=== PATIENT | female | born 1990 | race Caucasian/White ===

== ENCOUNTER 2016-08-19 00:53 | Inpatient (IN) | payer OTHER ==
[2016-08-19] VITALS (23 sets, daily range): BP systolic 78–119; BP diastolic 39–63
[~2016-08-19] VITALS: Ht 162.6 cm; Wt 80.7 kg
[2016-08-19] MEDS ORDERED: IPRATRPIUM/ALBUTEROL 0.5/2.5MG 3 ML NEBU. ONE (01:14)
[2016-08-19] MEDS ORDERED: POTASSIUM CHLORIDE 10MEQ 100 ML IV PRN ×3 (01:30)
[2016-08-19] MEDS ORDERED: INSULIN REGULAR VIAL 150 UNIT in 0.9 % SODIUM CHLORIDE 150ML 150 ML IV PRN (01:30)
[2016-08-19] MEDS ORDERED: ALBUTEROL SULFATE 2.5 MG/3 ML NEBU. NEB PRN (01:45)
[2016-08-19] MEDS: ONDANSETRON PF 4 MG/2 ML VIAL. IV PRN ×4 (02:06→23:11)
[2016-08-19] MEDS: MORPHINE SULFATE 2 MG/ML DISP.SYRIN. IV PRN ×4 (02:07→16:32)
[2016-08-19] MEDS ORDERED: MORPHINE SULFATE 4 MG/ML DISP.SYRIN. IV PRN (02:30)
[2016-08-19] MEDS ORDERED: INSU100V13 SQ (02:35)
[2016-08-19] MEDS ORDERED: LEVO125T PO (02:35)
[2016-08-19] MEDS ORDERED: PROAIR HFA8.5 GM INH (02:35)
[2016-08-19] MEDS ORDERED: FLUT1DIS3 IH (02:35)
[2016-08-19] MEDS ORDERED: PANT20TA2 PO (02:35)
[2016-08-19] MEDS ORDERED: INSU100V10 IJ (02:35)
[2016-08-19 02:40] LABS: CALCIUM 8.6 mg/dL (8.5-10.1); CREATININE 1.3 mg/dL (0.6-1.0); GFR 49.9; PHOSPHORUS 4.7 mg/dL (2.6-4.7); POTASSIUM 5.1 mmol/L (3.5-5.1)
[2016-08-19] MEDS ORDERED: IV NORMAL SALINE 1000ML BAG 1,000 ML IV SCH (03:00)
[2016-08-19] MEDS: IV DEXTROSE 5% - 0.9 % NACL 1,000 ML IV SCH ×5 (05:00→22:00)
[2016-08-19 06:46] LABS: CALCIUM 7.7 mg/dL (8.5-10.1); CREATININE 1.1 mg/dL (0.6-1.0); GFR 60.5; MAGNESIUM 1.5 mg/dL (1.8-2.4); PHOSPHORUS 3.4 mg/dL (2.6-4.7); POTASSIUM 4.6 mmol/L (3.5-5.1)
[2016-08-19] MEDS ORDERED: MAGNESIUM SULFATE 4GM 100 ML IV ONE (08:00)
[2016-08-19] MEDS ORDERED: ACETAMINOPHEN 500 MG TABLET PO PRN (08:15)
[2016-08-19] MEDS ORDERED: NON FORMULARY ITEM (Albuterol Sulfate (Proair Hfa Inhaler) 1 PUFF) INH PRN (08:15)
[2016-08-19] MEDS: ALBUTEROL SULFATE 2.5 MG/3 ML NEBU. NEB SCH ×4 (08:30→19:17)
[2016-08-19] MEDS ORDERED: MAGNESIUM SULFATE 2GM 50 ML IV ONE (08:30)
[2016-08-19 08:32] LABS: HCO3 ABG 8 mmol/L (21-28); PCO2 ABG 22 mmHg (35-46); PO2 ABG 95 mmHg (85-108); SAT O2 ABG 97 % (92-99)
[2016-08-19 08:40] LABS: FIO2 ABG 21; PH ABG 7.18 (7.35-7.45)
[2016-08-19] MEDS ORDERED: NON FORMULARY ITEM (Fluticasone/Salmeterol (Advair 250-50 Diskus) 1 PUFF) IH SCH (09:00)
--- NOTE | 2016-08-19 09:00 | PDOC1 ---
History and Physical Date of Admission Date of Admission DATE: 08/19/16 TIME: 08:53 Identification/Chief Complaint Chief Complaint nausea Source Source: Chart review, Patient History of Present Illness History of Present Illness 25 y.o Female, poor historian, no family at bedside, admitted for DKA. NO lactate, no UA, no CBC avail to me, only BMP which shows gap 20 plus, BIcarb 8,. , crea 1.4. Pain seeker as per staff, on home meds on levemir 32 qhs. Unsure if there is non compliance as cause for admission, Pt lethargic,. Unsure also if DKA vs HONK as metformin is listed as allergy I did ordfer STAT ABG and CBC, lactate and UA to check for ketones and infection ,. pH 7.1, bicarb still 8,. Insulin gtt running, BS now 200s, dextrose IVF running at 250cc/hr Past Medical History Pulmonary: Asthma, Bronchitis Endocrine: Diabetes, Hypothyroidism Past Surgical History Past Surgical History: No pertinent history Family History Family History: No Significant, Family History Unknown Social History Smoke: No ALCOHOL: none Drugs: None Current Medications Current Medications Current Medications Albuterol/ Ipratropium 3 ml 3 ml STK-MED ONCE .ROUTE ; Start 08/19/16 at 01:14; Stop 08/19/16 at 01:15; Status DC Sodium Chloride 1,000 ml @ 250 mls/hr Q4H IV Last administered on 08/19/16 02: 13; Start 08/19/16 at 03:00; Stop 08/19/16 at 05:13; Status DC Insulin Human Regular 150 unit/ Sodium Chloride 151.5 ml @ 0 mls/hr CONT PRN PRN IV PER PROTOCOL Last administered on 08/19/16 02:13; Start 08/19/16 at 01:30 Potassium Chloride 100 ml @ 100 mls/hr PRN Q1HR PRN IV SEE COMMENTS; Start 08/19/16 at 01:30 Potassium Chloride 100 ml @ 100 mls/hr PRN Q1HR PRN IV SEE COMMENTS; Start 08/19/16 at 01:30 Potassium Chloride (KCl Premix 10meq) 100 ml @ 100 mls/hr PRN Q1HR PRN IV SEE COMMENTS; Start 08/19/16 at 01:30 Albuterol Sulfate (Ventolin Neb Soln) 2.5 mg PRN QID PRN NEB WHEEZING; Start at 01:45 Morphine Sulfate 2 mg PRN Q2HR PRN IV SEVERE PAIN Last administered on 08:01; Start 08/19/16 at 01:45 Ondansetron HCl (Zofran) 4 mg PRN Q6HRS PRN IV NAUSEA/VOMITING Last administered on 08/19/16 08:01; Start 08/19/16 at 01:45; Stop 08/19/16 at 08:22; Status DC Morphine Sulfate 4 mg 4 mg PRN Q2HR PRN IV SEVERE PAIN Last administered on 08/19 03:13; Start 08/19/16 at 02:30 Dextrose/Sodium Chloride 1,000 ml @ 250 mls/hr Q4H IV Last administered on 08/19 05:00; Start 08/19/16 at 05:15 Magnesium Sulfate/ Dextrose 100 ml @ 25 mls/hr 1X ONCE IV Last administered on 08/19/16 08:23; Start 08/19/16 at 08:00; Stop 08/19/16 at 11:59 Magnesium Sulfate/ Dextrose (Magnesium Sulfate PREMIX 2GM) 50 ml @ 25 mls/hr 1X ONCE IV ; Start 08/19/16 at 08:30; Stop 08/19/16 at 10:29; Status Cancel Ondansetron HCl (Zofran) 4 mg PRN Q6HRS PRN IV NAUSEA/VOMITING; Start 08/19/16 at 08:15 Acetaminophen (Tylenol) 500 mg PRN Q6HRS PRN PO MILD PAIN / TEMP; Start at 08:15 Levothyroxine Sodium (Synthroid) 125 mcg DAILY PO ; Start 08/19/16 at 09:00 Non-Formulary Medication 1 puff PRN Q6HRS PRN INH SHORTNESS OF BREATH; Start at 08:15; Status UNV Non-Formulary Medication 1 puff BID IH ; Start 08/19/16 at 09:00; Status UNV Pantoprazole Sodium (Protonix) 40 mg DAILYAC PO ; Start 08/20/16 at 07:30 Albuterol Sulfate (Ventolin Neb Soln) 2.5 mg RTQID NEB ; Start 08/19/16 at 08:30 Budesonide (Pulmicort) 0.5 mg RTBID NEB ; Start 08/19/16 at 20:00 Active Scripts Active Reported Proair Hfa Inhaler (Albuterol Sulfate) 8.5 Gm Hfa.aer.ad 1 Puff INH PRN Q6HRS PRN Protonix (Pantoprazole Sodium) 20 Mg Tablet.dr 1 Tab PO DAILY Advair 250-50 Diskus (Fluticasone/Salmeterol) 1 Each Disk.w.dev 1 Puff IH BID Synthroid (Levothyroxine Sodium) 125 Mcg Tablet 1 Tab PO DAILY Novolin R (Insulin Regular, Human) 100 Unit/1 Ml Vial 100 Unit IJ Levemir (Insulin Detemir) 100 Unit/1 Ml Vial 32 Unit SQ QHS Allergies Allergies: Coded Allergies: Penicillins (Verified Allergy, Intermediate, 08/19/16) metformin (Verified Allergy, Intermediate, 08/19/16) vancomycin (Verified Allergy, Intermediate, 08/19/16) ROS Review of System limited -lethargic Physical Exam General: No acute distress, Other (lethargic) HEENT: Atraumatic Lungs: Clear to auscultation Heart: S1S2, RRR, other (sinus tachy) Breasts: Normal, Rt breast nml w/o mass, Lt breast nml w/o mass, Nipples normal Abdomen: Normal bowel sounds, Soft, No tenderness, No hepatosplenomegaly, No masses Rectal Exam: not examined, mass PELVIC: Nml ext genitalia Extremities: No clubbing, No cyanosis, No edema, Normal pulses, No tenderness/ swelling Skin: No rashes, No breakdown, No significant lesion Vitals Vitals Vital Signs Date Time Temp Pulse Resp B/P Pulse Ox O2 Delivery O2 Flow Rate FiO2 08/19/16 08:01 20 100 Room Air 08/19/16 06:00 106 100/39 08/19/16 05:00 98.5 98.5 Labs Labs Laboratory Tests Test 08/19/16 01:16 08/19/16 02:05 08/19/16 04:44 08/19/16 06:06 Glucose (Fingerstick) 267mg/dL (70-99) 99mg/dL (70-99) 126mg/dL (70-99) Sodium Level 137mmol/L (136-145) Potassium Level 5.1mmol/L (3.5-5.1) Chloride Level 99mmol/L (98-107) Carbon Dioxide Level 8mmol/L (21-32) Anion Gap 30 (6-14) Blood Urea Nitrogen 33mg/dL (7-20) Creatinine 1.3mg/dL (0.6-1.0) Estimated GFR (Cockcroft-Gault) 49.9 Glucose Level 243mg/dL (70-99) Calcium Level 8.6mg/dL (8.5-10.1) Phosphorus Level 4.7mg/dL (2.6-4.7) Magnesium Level 2.0mg/dL (1.8-2.4) Test 08/19/16 06:20 08/19/16 07:17 08/19/16 08:28 08/19/16 08:30 Sodium Level 135mmol/L (136-145) Potassium Level 4.6mmol/L (3.5-5.1) Chloride Level 101mmol/L (98-107) Carbon Dioxide Level 9mmol/L (21-32) Anion Gap 25 (6-14) Blood Urea Nitrogen 24mg/dL (7-20) Creatinine 1.1mg/dL (0.6-1.0) Estimated GFR (Cockcroft-Gault) 60.5 Glucose Level 136mg/dL (70-99) Calcium Level 7.7mg/dL (8.5-10.1) Phosphorus Level 3.4mg/dL (2.6-4.7) Magnesium Level 1.5mg/dL (1.8-2.4) Glucose (Fingerstick) 205mg/dL (70-99) 238mg/dL (70-99) O2 Saturation 97% (92-99) Arterial Blood pH 7.18 (7.35-7.45) Arterial Blood pCO2 at Patient Temp 22mmHg (35-46) Arterial Blood pO2 at Patient Temp 95mmHg (85-108) Arterial Blood HCO3 8mmol/L (21-28) Arterial Blood Base Excess -18mmol/L (-3-3) FiO2 21 Laboratory Tests Test 08/19/16 01:16 08/19/16 02:05 08/19/16 04:44 08/19/16 06:06 Glucose (Fingerstick) 267mg/dL (70-99) 99mg/dL (70-99) 126mg/dL (70-99) Sodium Level 137mmol/L (136-145) Potassium Level 5.1mmol/L (3.5-5.1) Chloride Level 99mmol/L (98-107) Carbon Dioxide Level 8mmol/L (21-32) Anion Gap 30 (6-14) Blood Urea Nitrogen 33mg/dL (7-20) Creatinine 1.3mg/dL (0.6-1.0) Estimated GFR (Cockcroft-Gault) 49.9 Glucose Level 243mg/dL (70-99) Calcium Level 8.6mg/dL (8.5-10.1) Phosphorus Level 4.7mg/dL (2.6-4.7) Magnesium Level 2.0mg/dL (1.8-2.4) Test 08/19/16 06:20 08/19/16 07:17 08/19/16 08:28 08/19/16 08:30 Sodium Level 135mmol/L (136-145) Potassium Level 4.6mmol/L (3.5-5.1) Chloride Level 101mmol/L (98-107) Carbon Dioxide Level 9mmol/L (21-32) Anion Gap 25 (6-14) Blood Urea Nitrogen 24mg/dL (7-20) Creatinine 1.1mg/dL (0.6-1.0) Estimated GFR (Cockcroft-Gault) 60.5 Glucose Level 136mg/dL (70-99) Calcium Level 7.7mg/dL (8.5-10.1) Phosphorus Level 3.4mg/dL (2.6-4.7) Magnesium Level 1.5mg/dL (1.8-2.4) Glucose (Fingerstick) 205mg/dL (70-99) 238mg/dL (70-99) O2 Saturation 97% (92-99) Arterial Blood pH 7.18 (7.35-7.45) Arterial Blood pCO2 at Patient Temp 22mmHg (35-46) Arterial Blood pO2 at Patient Temp 95mmHg (85-108) Arterial Blood HCO3 8mmol/L (21-28) Arterial Blood Base Excess -18mmol/L (-3-3) FiO2 21 VTE Prophylaxis Ordered VTE Prophylaxis Devices: Yes VTE Pharmacological Prophylaxi: Yes Assessment/Plan Assessment/Plan 1. DKA 2. Pseudohyponatremia 3. Gap metabolic acidosis 4. DM uncontrolled 5. Hypothyroidism on synthroid 6. Asthma vs COPD on inhalers 7. SIRS, no sepsis 8. MEtabolc encephalopathy sec to # 1 PLAn: DKA protocol, cont insulin gtt as gap still open Agree with dextrose containing IVF now 2 amps bicarb now given significant acidemia and no improvement with insulin gtt and IVF COnt synthroid and inhalers Dc morphine 4 mgs - Downgrade to liquid diet BMP q4 till gap closes Keep ICU CC 32mins JELENA BASSETT MD Aug 19, 2016 09:00
[2016-08-19] MEDS ORDERED: SODIUM BICARBONATE VIAL 50 MEQ in IV 1/2 NORMAL SALINE 1,000 ML IV ONE (09:30)
[2016-08-19 09:45] LABS: BASO % 0 % (0-3); EOS % 0 % (0-3); HEMOGLOBIN 12.2 g/dL (12.0-15.5); LYMPH # 2.2 x10^3/uL (1.0-4.8); LYMPH % 19 % (24-48); MEAN CORPUSCULAR HEMOGLOBIN 30 pg (25-35); MEAN CORPUSCULAR HGB CONC 32 g/dL (31-37); MEAN CORPUSCULAR VOLUME 93 fL (79-100); MONO % 7 % (0-9); NEUT % 74 % (31-73); PLATELET COUNT 289 x10^3/uL (140-400); RED BLOOD COUNT 4.08 x10^6/uL (3.50-5.40); RED CELL DISTRIBUTION WIDTH 16.1 % (11.5-14.5); WHITE BLOOD COUNT 11.4 x10^3/uL (4.0-11.0)
[2016-08-19] MEDS ORDERED: SODIUM BICARB ADULT 8.4% 50 MEQ/50 ML DISP.SYRIN. IV ONE (10:00)
[2016-08-19 10:03] LABS: CALCIUM 7.7 mg/dL (8.5-10.1); CREATININE 1.1 mg/dL (0.6-1.0); GFR 60.5; PHOSPHORUS 2.5 mg/dL (2.6-4.7); POTASSIUM 4.2 mmol/L (3.5-5.1)
[2016-08-19] MEDS: LEVOTHYROXINE 125 MCG TABLET PO SCH (11:55)
[2016-08-19] MEDS: POTASSIUM CHLORIDE 10MEQ 100 ML IV SCH ×6 (11:55→23:28)
[2016-08-19] MEDS ORDERED: SODIUM PHOSPHATE 20 MMOL in IV DEXTROSE 5% 250 ML IV ONE ×2 (12:30→17:30)
[2016-08-19 15:52] LABS: CALCIUM 7.3 mg/dL (8.5-10.1); GFR 67.6; PHOSPHORUS 2.6 mg/dL (2.6-4.7); POTASSIUM 3.7 mmol/L (3.5-5.1)
[2016-08-19] MEDS: BUDESONIDE 0.5 MG/2 ML NEBU. NEB SCH (19:17)
[2016-08-19 20:02] LABS: CALCIUM 6.7 mg/dL (8.5-10.1); CREATININE 0.9 mg/dL (0.6-1.0); GFR 76.3; PHOSPHORUS 2.2 mg/dL (2.6-4.7); POTASSIUM 3.4 mmol/L (3.5-5.1)
[2016-08-19] MEDS ORDERED: DEXTROSE 50% 25 GM / 50ML DISP.SYRIN. IV PRN (22:30)
[2016-08-19] MEDS ORDERED: INSULIN DETEMIR 300 UNITS/3 ML INSULN.PEN. SQ ONE (23:30)
[2016-08-19] MEDS: IV NORMAL SALINE 1000ML BAG 1,000 ML IV SCH (23:30)
[2016-08-20] VITALS (10 sets, daily range): BP systolic 89–116; BP diastolic 50–75
[2016-08-20 05:07] LABS: BILIRUBIN,URINE SMALL (NEG); GLUCOSE,URINE 250 mg/dL (NEG); NITRITE,URINE NEGATIVE (NEG); PROTEIN,URINE NEGATIVE (NEG-TRACE); UROBILINOGEN,URINE 0.2 mg/dL (0.2 mg/dL)
[2016-08-20 05:16] LABS: BACTERIA,URINE 0 /HPF (0-FEW); RBC,URINE 0 /HPF (0-2); SQUAMOUS EPITHELIAL CELL,UR FEW /LPF; WBC,URINE 0 /HPF (0-4)
[2016-08-20 06:03] LABS: CREATININE 0.8 mg/dL (0.6-1.0); GFR 87.4; MAGNESIUM 2.1 mg/dL (1.8-2.4); PHOSPHORUS 1.1 mg/dL (2.6-4.7); POTASSIUM 3.4 mmol/L (3.5-5.1)
[2016-08-20] MEDS: BUDESONIDE 0.5 MG/2 ML NEBU. NEB SCH ×2 (07:44→20:52)
[2016-08-20] MEDS: ALBUTEROL SULFATE 2.5 MG/3 ML NEBU. NEB SCH ×4 (07:44→20:52)
[2016-08-20] MEDS: INSULIN ASPART 300 UNITS/3 ML INSULN.PEN SQ SCH ×3 (08:00→18:18)
[2016-08-20] MEDS: OXYCODONE/APAP 5/325 TABLET. PO PRN ×3 (09:03→20:54)
[2016-08-20] MEDS: PANTOPRAZOLE 40 MG TABLET.DR. PO SCH (09:03)
[2016-08-20] MEDS: LEVOTHYROXINE 125 MCG TABLET PO SCH (09:03)
[2016-08-20] MEDS: ONDANSETRON PF 4 MG/2 ML VIAL. IV PRN ×3 (09:03→21:00)
--- NOTE | 2016-08-20 12:23 | PDOC ---
PROGRESS NOTES Chief Complaint Chief Complaint 1. DKA, resolved 2. Pseudohyponatremia, resolved 3. Gap metabolic acidosis, closed 4. DM uncontrolled 5. Hypothyroidism on synthroid 6. Asthma vs COPD on inhalers 7. SIRS, no sepsis 8. MEtabolc encephalopathy sec to # 1 History of Present Illness History of Present Illness Just laying in bed Asking for pain meds Claims diarrhea but none seen by staff GAp closed BS on high side - K low Phosphorus low Just ate a biscuit for breakfast PLAN: Transfer to [facility] surg Replace with K phosp Resume HOME DOSE levemir 32 units qhs WIll need scripts of synthroid, long acting insulin vial etc upon dc - hopefully elia, once feeling better Would not inc any more of her narcs Recheck BMP and phosphorus elia AM Eric RN Vitals Vitals Vital Signs Date Time Temp Pulse Resp B/P Pulse Ox O2 Delivery O2 Flow Rate FiO2 08/20/16 11:57 Room Air 08/20/16 11:33 98.0 90 16 102/57 97 98.0 Physical Exam General: No acute distress, Other (lethargic) Abdomen: Normal bowel sounds, Soft, No tenderness, No hepatosplenomegaly, No masses Extremities: No clubbing, No cyanosis, No edema, Normal pulses, No tenderness/ swelling Skin: No rashes, No breakdown, No significant lesion Labs LABS Laboratory Tests Test 08/19/16 12:46 08/19/16 13:39 08/19/16 14:52 08/19/16 15:00 Glucose (Fingerstick) 129mg/dL (70-99) 126mg/dL (70-99) 158mg/dL (70-99) Sodium Level 139mmol/L (136-145) Potassium Level 3.7mmol/L (3.5-5.1) Chloride Level 104mmol/L (98-107) Carbon Dioxide Level 17mmol/L (21-32) Anion Gap 18 (6-14) Blood Urea Nitrogen 13mg/dL (7-20) Creatinine 1.0mg/dL (0.6-1.0) Estimated GFR (Cockcroft-Gault) 67.6 Glucose Level 169mg/dL (70-99) Calcium Level 7.3mg/dL (8.5-10.1) Phosphorus Level 2.6mg/dL (2.6-4.7) Magnesium Level 2.4mg/dL (1.8-2.4) Test 08/19/16 16:26 08/19/16 17:32 08/19/16 18:15 08/19/16 19:24 Glucose (Fingerstick) 143mg/dL (70-99) 130mg/dL (70-99) 133mg/dL (70-99) 148mg/dL (70-99) Test 08/19/16 19:30 08/19/16 21:00 08/19/16 21:29 08/20/16 02:55 Sodium Level 138mmol/L (136-145) Potassium Level 3.4mmol/L (3.5-5.1) Chloride Level 105mmol/L (98-107) Carbon Dioxide Level 21mmol/L (21-32) Anion Gap 12 (6-14) Blood Urea Nitrogen 10mg/dL (7-20) Creatinine 0.9mg/dL (0.6-1.0) Estimated GFR (Cockcroft-Gault) 76.3 Glucose Level 166mg/dL (70-99) Calcium Level 6.7mg/dL (8.5-10.1) Phosphorus Level 2.2mg/dL (2.6-4.7) Magnesium Level 2.0mg/dL (1.8-2.4) Urine Collection Type Unknown Urine Color Yellow Urine Clarity Turbid Urine pH 6.0 Urine Specific [place] 1.020 Urine Protein Negativemg/dL (NEG-TRACE) Urine Glucose (UA) 250mg/dL (NEG) Urine Ketones (Stick) 40mg/dL (NEG) Urine Blood Negative (NEG) Urine Nitrite Negative (NEG) Urine Bilirubin Small (NEG) Urine Urobilinogen Dipstick 0.2mg/dL (0.2 mg/dL) Urine Leukocyte Esterase Negative (NEG) Urine RBC 0/HPF (0-2) Urine WBC 0/HPF (0-4) Urine Squamous Epithelial Cells Few/LPF Urine Amorphous Sediment Present/HPF Urine Bacteria 0/HPF (0-FEW) Urine Mucus Slight/LPF Glucose (Fingerstick) 140mg/dL (70-99) 189mg/dL (70-99) Test 08/20/16 05:20 Sodium Level 142mmol/L (136-145) Potassium Level 3.4mmol/L (3.5-5.1) Chloride Level 109mmol/L (98-107) Carbon Dioxide Level 20mmol/L (21-32) Anion Gap 13 (6-14) Blood Urea Nitrogen 6mg/dL (7-20) Creatinine 0.8mg/dL (0.6-1.0) Estimated GFR (Cockcroft-Gault) 87.4 Glucose Level 121mg/dL (70-99) Calcium Level 7.0mg/dL (8.5-10.1) Phosphorus Level 1.1mg/dL (2.6-4.7) Magnesium Level 2.1mg/dL (1.8-2.4) Review of Systems Review of Systems weak, "pain all over" no appetite Assessment and Plan Assessmemt and Plan Problems Medical Problems: (1) DKA (diabetic ketoacidoses) Status: Acute Problems: Comment Review of Relevant I have reviewed the following items tr (where applicable) has been applied. Labs Laboratory Tests Test 08/19/16 01:16 08/19/16 01:30 08/19/16 02:05 08/19/16 04:44 Glucose (Fingerstick) 267mg/dL (70-99) 99mg/dL (70-99) Nasal Screen MRSA (PCR) Negative (Negative) Sodium Level 137mmol/L (136-145) Potassium Level 5.1mmol/L (3.5-5.1) Chloride Level 99mmol/L (98-107) Carbon Dioxide Level 8mmol/L (21-32) Anion Gap 30 (6-14) Blood Urea Nitrogen 33mg/dL (7-20) Creatinine 1.3mg/dL (0.6-1.0) Estimated GFR (Cockcroft-Gault) 49.9 Glucose Level 243mg/dL (70-99) Calcium Level 8.6mg/dL (8.5-10.1) Phosphorus Level 4.7mg/dL (2.6-4.7) Magnesium Level 2.0mg/dL (1.8-2.4) Test 08/19/16 06:06 08/19/16 06:20 08/19/16 07:17 08/19/16 08:28 Glucose (Fingerstick) 126mg/dL (70-99) 205mg/dL (70-99) 238mg/dL (70-99) Sodium Level 135mmol/L (136-145) Potassium Level 4.6mmol/L (3.5-5.1) Chloride Level 101mmol/L (98-107) Carbon Dioxide Level 9mmol/L (21-32) Anion Gap 25 (6-14) Blood Urea Nitrogen 24mg/dL (7-20) Creatinine 1.1mg/dL (0.6-1.0) Estimated GFR (Cockcroft-Gault) 60.5 Glucose Level 136mg/dL (70-99) Calcium Level 7.7mg/dL (8.5-10.1) Phosphorus Level 3.4mg/dL (2.6-4.7) Magnesium Level 1.5mg/dL (1.8-2.4) Test 08/19/16 08:30 08/19/16 09:32 08/19/16 09:35 08/19/16 10:37 O2 Saturation 97% (92-99) Arterial Blood pH 7.18 (7.35-7.45) Arterial Blood pCO2 at Patient Temp 22mmHg (35-46) Arterial Blood pO2 at Patient Temp 95mmHg (85-108) Arterial Blood HCO3 8mmol/L (21-28) Arterial Blood Base Excess -18mmol/L (-3-3) FiO2 21 Glucose (Fingerstick) 209mg/dL (70-99) 170mg/dL (70-99) White Blood Count 11.4x10^3/uL (4.0-11.0) Red Blood Count 4.08x10^6/uL (3.50-5.40) Hemoglobin 12.2g/dL (12.0-15.5) Hematocrit 38.0% (36.0-47.0) Mean Corpuscular Volume 93fL (79-100) Mean Corpuscular Hemoglobin 30pg (25-35) Mean Corpuscular Hemoglobin Concent 32g/dL (31-37) Red Cell Distribution Width 16.1% (11.5-14.5) Platelet Count 289x10^3/uL (140-400) Neutrophils (%) (Auto) 74% (31-73) Lymphocytes (%) (Auto) 19% (24-48) Monocytes (%) (Auto) 7% (0-9) Eosinophils (%) (Auto) 0% (0-3) Basophils (%) (Auto) 0% (0-3) Neutrophils # (Auto) 8.4x10^3uL (1.8-7.7) Lymphocytes # (Auto) 2.2x10^3/uL (1.0-4.8) Monocytes # (Auto) 0.8x10^3/uL (0.0-1.1) Eosinophils # (Auto) 0.0x10^3/uL (0.0-0.7) Basophils # (Auto) 0.0x10^3/uL (0.0-0.2) Sodium Level 136mmol/L (136-145) Potassium Level 4.2mmol/L (3.5-5.1) Chloride Level 104mmol/L (98-107) Carbon Dioxide Level 12mmol/L (21-32) Anion Gap 20 (6-14) Blood Urea Nitrogen 19mg/dL (7-20) Creatinine 1.1mg/dL (0.6-1.0) Estimated GFR (Cockcroft-Gault) 60.5 Glucose Level 213mg/dL (70-99) Lactic Acid Level 1.2mmol/L (0.4-2.0) Calcium Level 7.7mg/dL (8.5-10.1) Phosphorus Level 2.5mg/dL (2.6-4.7) Magnesium Level 2.0mg/dL (1.8-2.4) Test 08/19/16 11:42 08/19/16 12:46 08/19/16 13:39 08/19/16 14:52 Glucose (Fingerstick) 143mg/dL (70-99) 129mg/dL (70-99) 126mg/dL (70-99) 158mg/dL (70-99) Test 08/19/16 15:00 08/19/16 16:26 08/19/16 17:32 08/19/16 18:15 Sodium Level 139mmol/L (136-145) Potassium Level 3.7mmol/L (3.5-5.1) Chloride Level 104mmol/L (98-107) Carbon Dioxide Level 17mmol/L (21-32) Anion Gap 18 (6-14) Blood Urea Nitrogen 13mg/dL (7-20) Creatinine 1.0mg/dL (0.6-1.0) Estimated GFR (Cockcroft-Gault) 67.6 Glucose Level 169mg/dL (70-99) Calcium Level 7.3mg/dL (8.5-10.1) Phosphorus Level 2.6mg/dL (2.6-4.7) Magnesium Level 2.4mg/dL (1.8-2.4) Glucose (Fingerstick) 143mg/dL (70-99) 130mg/dL (70-99) 133mg/dL (70-99) Test 08/19/16 19:24 08/19/16 19:30 08/19/16 21:00 08/19/16 21:29 Glucose (Fingerstick) 148mg/dL (70-99) 140mg/dL (70-99) Sodium Level 138mmol/L (136-145) Potassium Level 3.4mmol/L (3.5-5.1) Chloride Level 105mmol/L (98-107) Carbon Dioxide Level 21mmol/L (21-32) Anion Gap 12 (6-14) Blood Urea Nitrogen 10mg/dL (7-20) Creatinine 0.9mg/dL (0.6-1.0) Estimated GFR (Cockcroft-Gault) 76.3 Glucose Level 166mg/dL (70-99) Calcium Level 6.7mg/dL (8.5-10.1) Phosphorus Level 2.2mg/dL (2.6-4.7) Magnesium Level 2.0mg/dL (1.8-2.4) Urine Collection Type Unknown Urine Color Yellow Urine Clarity Turbid Urine pH 6.0 Urine Specific [place] 1.020 Urine Protein Negativemg/dL (NEG-TRACE) Urine Glucose (UA) 250mg/dL (NEG) Urine Ketones (Stick) 40mg/dL (NEG) Urine Blood Negative (NEG) Urine Nitrite Negative (NEG) Urine Bilirubin Small (NEG) Urine Urobilinogen Dipstick 0.2mg/dL (0.2 mg/dL) Urine Leukocyte Esterase Negative (NEG) Urine RBC 0/HPF (0-2) Urine WBC 0/HPF (0-4) Urine Squamous Epithelial Cells Few/LPF Urine Amorphous Sediment Present/HPF Urine Bacteria 0/HPF (0-FEW) Urine Mucus Slight/LPF Test 08/20/16 02:55 08/20/16 05:20 Glucose (Fingerstick) 189mg/dL (70-99) Sodium Level 142mmol/L (136-145) Potassium Level 3.4mmol/L (3.5-5.1) Chloride Level 109mmol/L (98-107) Carbon Dioxide Level 20mmol/L (21-32) Anion Gap 13 (6-14) Blood Urea Nitrogen 6mg/dL (7-20) Creatinine 0.8mg/dL (0.6-1.0) Estimated GFR (Cockcroft-Gault) 87.4 Glucose Level 121mg/dL (70-99) Calcium Level 7.0mg/dL (8.5-10.1) Phosphorus Level 1.1mg/dL (2.6-4.7) Magnesium Level 2.1mg/dL (1.8-2.4) Laboratory Tests Test 08/19/16 12:46 08/19/16 13:39 08/19/16 14:52 08/19/16 15:00 Glucose (Fingerstick) 129mg/dL (70-99) 126mg/dL (70-99) 158mg/dL (70-99) Sodium Level 139mmol/L (136-145) Potassium Level 3.7mmol/L (3.5-5.1) Chloride Level 104mmol/L (98-107) Carbon Dioxide Level 17mmol/L (21-32) Anion Gap 18 (6-14) Blood Urea Nitrogen 13mg/dL (7-20) Creatinine 1.0mg/dL (0.6-1.0) Estimated GFR (Cockcroft-Gault) 67.6 Glucose Level 169mg/dL (70-99) Calcium Level 7.3mg/dL (8.5-10.1) Phosphorus Level 2.6mg/dL (2.6-4.7) Magnesium Level 2.4mg/dL (1.8-2.4) Test 08/19/16 16:26 08/19/16 17:32 08/19/16 18:15 08/19/16 19:24 Glucose (Fingerstick) 143mg/dL (70-99) 130mg/dL (70-99) 133mg/dL (70-99) 148mg/dL (70-99) Test 08/19/16 19:30 08/19/16 21:00 08/19/16 21:29 08/20/16 02:55 Sodium Level 138mmol/L (136-145) Potassium Level 3.4mmol/L (3.5-5.1) Chloride Level 105mmol/L (98-107) Carbon Dioxide Level 21mmol/L (21-32) Anion Gap 12 (6-14) Blood Urea Nitrogen 10mg/dL (7-20) Creatinine 0.9mg/dL (0.6-1.0) Estimated GFR (Cockcroft-Gault) 76.3 Glucose Level 166mg/dL (70-99) Calcium Level 6.7mg/dL (8.5-10.1) Phosphorus Level 2.2mg/dL (2.6-4.7) Magnesium Level 2.0mg/dL (1.8-2.4) Urine Collection Type Unknown Urine Color Yellow Urine Clarity Turbid Urine pH 6.0 Urine Specific [place] 1.020 Urine Protein Negativemg/dL (NEG-TRACE) Urine Glucose (UA) 250mg/dL (NEG) Urine Ketones (Stick) 40mg/dL (NEG) Urine Blood Negative (NEG) Urine Nitrite Negative (NEG) Urine Bilirubin Small (NEG) Urine Urobilinogen Dipstick 0.2mg/dL (0.2 mg/dL) Urine Leukocyte Esterase Negative (NEG) Urine RBC 0/HPF (0-2) Urine WBC 0/HPF (0-4) Urine Squamous Epithelial Cells Few/LPF Urine Amorphous Sediment Present/HPF Urine Bacteria 0/HPF (0-FEW) Urine Mucus Slight/LPF Glucose (Fingerstick) 140mg/dL (70-99) 189mg/dL (70-99) Test 08/20/16 05:20 Sodium Level 142mmol/L (136-145) Potassium Level 3.4mmol/L (3.5-5.1) Chloride Level 109mmol/L (98-107) Carbon Dioxide Level 20mmol/L (21-32) Anion Gap 13 (6-14) Blood Urea Nitrogen 6mg/dL (7-20) Creatinine 0.8mg/dL (0.6-1.0) Estimated GFR (Cockcroft-Gault) 87.4 Glucose Level 121mg/dL (70-99) Calcium Level 7.0mg/dL (8.5-10.1) Phosphorus Level 1.1mg/dL (2.6-4.7) Magnesium Level 2.1mg/dL (1.8-2.4) Medications Current Medications Albuterol/ Ipratropium 3 ml 3 ml STK-MED ONCE .ROUTE ; Start 08/19/16 at 01:14; Stop 08/19/16 at 01:15; Status DC Sodium Chloride 1,000 ml @ 250 mls/hr Q4H IV Last administered on 08/19/16 02: 13; Start 08/19/16 at 03:00; Stop 08/19/16 at 05:13; Status DC Insulin Human Regular 150 unit/ Sodium Chloride 151.5 ml @ 0 mls/hr CONT PRN PRN IV PER PROTOCOL Last administered on 08/19/16 02:13; Start 08/19/16 at 01:30 ; Stop 08/19/16 at 22:49; Status DC Potassium Chloride 100 ml @ 100 mls/hr PRN Q1HR PRN IV SEE COMMENTS; Start 08/19/16 at 01:30 Potassium Chloride 100 ml @ 100 mls/hr PRN Q1HR PRN IV SEE COMMENTS; Start 08/19/16 at 01:30 Potassium Chloride (KCl Premix 10meq) 100 ml @ 100 mls/hr PRN Q1HR PRN IV SEE COMMENTS; Start 08/19/16 at 01:30 Albuterol Sulfate (Ventolin Neb Soln) 2.5 mg PRN QID PRN NEB WHEEZING Last administered on 08/19/16 23:40; Start 08/19/16 at 01:45 Morphine Sulfate 2 mg PRN Q2HR PRN IV SEVERE PAIN Last administered on 16:32; Start 08/19/16 at 01:45 Ondansetron HCl (Zofran) 4 mg PRN Q6HRS PRN IV NAUSEA/VOMITING Last administered on 08/19/16 08:01; Start 08/19/16 at 01:45; Stop 08/19/16 at 08:22; Status DC Morphine Sulfate 4 mg 4 mg PRN Q2HR PRN IV SEVERE PAIN Last administered on 08/19 03:13; Start 08/19/16 at 02:30; Stop 08/19/16 at 08:53; Status DC Dextrose/Sodium Chloride 1,000 ml @ 250 mls/hr Q4H IV Last administered on 08/19 22:00; Start 08/19/16 at 05:15; Stop 08/19/16 at 22:49; Status DC Magnesium Sulfate/ Dextrose 100 ml @ 25 mls/hr 1X ONCE IV Last administered on 08/19/16 08:23; Start 08/19/16 at 08:00; Stop 08/19/16 at 11:59; Status DC Magnesium Sulfate/ Dextrose (Magnesium Sulfate PREMIX 2GM) 50 ml @ 25 mls/hr 1X ONCE IV ; Start 08/19/16 at 08:30; Stop 08/19/16 at 10:29; Status Cancel Ondansetron HCl (Zofran) 4 mg PRN Q6HRS PRN IV NAUSEA/VOMITING Last administered on 08/20/16 09:03; Start 08/19/16 at 08:15 Acetaminophen (Tylenol) 500 mg PRN Q6HRS PRN PO MILD PAIN / TEMP; Start at 08:15 Levothyroxine Sodium (Synthroid) 125 mcg DAILY PO Last administered on 09:03; Start 08/19/16 at 09:00 Non-Formulary Medication 1 puff PRN Q6HRS PRN INH SHORTNESS OF BREATH; Start at 08:15; Status UNV Non-Formulary Medication 1 puff BID IH ; Start 08/19/16 at 09:00; Status UNV Pantoprazole Sodium (Protonix) 40 mg DAILYAC PO Last administered on 08/20/16 09:03; Start 08/20/16 at 07:30 Albuterol Sulfate (Ventolin Neb Soln) 2.5 mg RTQID NEB Last administered on 08/20 11:56; Start 08/19/16 at 08:30 Budesonide 0.5 mg 0.5 mg RTBID NEB Last administered on 08/20/16 07:44; Start 08/19/16 at 20:00 Sodium Bicarbonate/ Sodium Chloride (Iv Sodium Chloride 0.45%) 1,050 ml @ 125 mls/hr 1X ONCE IV ; Start 08/19/16 at 09:30; Stop 08/19/16 at 17:53; Status DC Sodium Bicarbonate 100 meq 100 meq 1X ONCE IV Last administered on 08/19/16 10 :31; Start 08/19/16 at 10:00; Stop 08/19/16 at 10:01; Status DC Sodium Phosphate 20 mmol/Dextrose 256.6667 ml @ 64.167 m... 1X ONCE IV Last administered on 08/19/16 11:53; Start 08/19/16 at 12:30; Stop 08/19/16 at 16:29; Status DC Potassium Chloride 100 ml @ 100 mls/hr Q1H IV Last administered on 08/19/16 13 :36; Start 08/19/16 at 13:00; Stop 08/19/16 at 14:59; Status DC Potassium Chloride 100 ml @ 100 mls/hr Q1H IV Last administered on 08/19/16 23 :28; Start 08/19/16 at 18:00; Stop 08/19/16 at 21:59; Status DC Sodium Phosphate 20 mmol/Dextrose 256.6667 ml @ 64.167 m... 1X ONCE IV Last administered on 08/19/16 17:30; Start 08/19/16 at 17:30; Stop 08/19/16 at 21:29; Status DC Sodium Chloride (Iv Sodium Chloride 0.9% 1000ml Bag) 1,000 ml @ 100 mls/hr Q10H IV Last administered on 08/19/16 23:30; Start 08/19/16 at 22:30 Insulin Detemir (Levemir) 25 units QHS SQ ; Start 08/20/16 at 21:00; Stop at 21:00; Status DC Insulin Detemir (Levemir) 25 units 1X ONCE SQ Last administered on 08/19/16 23 :08; Start 08/19/16 at 23:30; Stop 08/19/16 at 23:31; Status DC Insulin Aspart (Novolog) 0-9 UNITS TIDWMEALS SQ ; Start 08/20/16 at 08:00 Dextrose (Dextrose 50%-Water Syringe) 12.5 gm PRN Q15MIN PRN IV SEE COMMENTS; Start 08/19/16 at 22:30 Oxycodone/ Acetaminophen (Percocet 5/325) 1 tab PRN Q6HRS PRN PO SEVERE PAIN Last administered on 08/20/16t 09:03; Start 08/19/16 at 22:30 Insulin Detemir 32 units 32 units QHS SQ ; Start 08/20/16 at 21:00 Potassium Phosphate/Sodium Chloride (Potassium Phosphate/Iv Sodium Chloride 0.9 % 100ml) 104.5333 ml @ 52.267 m... Q2H IV ; Start 08/20/16 at 12:00; Stop at 15:59 Active Scripts Active Reported Proair Hfa Inhaler (Albuterol Sulfate) 8.5 Gm Hfa.aer.ad 1 Puff INH PRN Q6HRS PRN Protonix (Pantoprazole Sodium) 20 Mg Tablet.dr 1 Tab PO DAILY Advair 250-50 Diskus (Fluticasone/Salmeterol) 1 Each Disk.w.dev 1 Puff IH BID Synthroid (Levothyroxine Sodium) 125 Mcg Tablet 1 Tab PO DAILY Novolin R (Insulin Regular, Human) 100 Unit/1 Ml Vial 100 Unit IJ Levemir (Insulin Detemir) 100 Unit/1 Ml Vial 32 Unit SQ QHS Vitals/I & O Vital Sign - Last 24 Hours 08/19/16 08/19/16 08/19/16 08/19/16 13:00 13:39 14:00 15:00 Pulse 89 102 86 Resp 16 18 18 15 B/P 89/41 95/52 99/53 Pulse Ox 100 100 98 99 O2 Delivery Room Air Room Air Room Air 08/19/16 08/19/16 08/19/16 08/19/16 16:00 16:32 17:00 17:00 Temp 97.7 97.7 Pulse 88 86 Resp 16 16 14 15 B/P 106/52 90/46 Pulse Ox 99 99 99 99 O2 Delivery Room Air Nasal Cannula Room Air Room Air 08/19/16 08/19/16 08/19/16 08/19/16 18:00 19:00 20:00 21:00 Temp 98.6 98.6 Pulse 83 80 80 81 Resp 15 14 15 15 B/P 98/55 98/55 96/56 105/63 Pulse Ox 98 98 98 98 O2 Delivery Room Air Room Air Room Air Room Air 08/19/16 08/19/16 08/19/16 08/20/16 22:00 23:00 23:41 00:00 Temp 98.5 98.5 Pulse 81 93 93 Resp 15 15 15 B/P 102/56 78/57 107/60 Pulse Ox 98 98 98 98 O2 Delivery Room Air Room Air Room Air Room Air 08/20/16 08/20/16 08/20/16 08/20/16 01:00 02:00 04:00 07:44 Temp 98.6 98.6 Pulse 94 93 89 Resp 14 15 15 B/P 89/50 100/50 92/52 Pulse Ox 98 98 98 O2 Delivery Room Air Room Air Room Air Room Air 08/20/16 08/20/16 08/20/16 08/20/16 07:55 09:03 11:33 11:37 Temp 97.8 98.0 97.8 98.0 Pulse 97 90 Resp 16 16 B/P 111/55 102/57 Pulse Ox 98 97 O2 Delivery Room Air Room Air Room Air Room Air 08/20/16 11:57 O2 Delivery Room Air Intake and Output 08/19/16 08/19/16 08/20/16 15:00 23:00 07:00 Intake Total 850 ml 2874 ml 200 ml Output Total 300 ml Balance 850 ml 2874 ml -100 ml JELENA BASSETT MD Aug 20, 2016 12:23
[2016-08-20] MEDS: POTASSIUM PHOSPHATE DIBASIC 13.6 MMOL in IV NORMAL SALINE 100ML 100 ML IV SCH ×2 (13:39→15:17)
[2016-08-20] MEDS: IV NORMAL SALINE 1000ML BAG 1,000 ML IV SCH ×3 (15:17→23:34)
[2016-08-20] MEDS ORDERED: INSULIN DETEMIR 300 UNITS/3 ML INSULN.PEN. SQ SCH ×2 (21:00)
[2016-08-20] MEDS ORDERED: INSULIN ASPART 300 UNITS/3 ML INSULN.PEN SQ ONE (23:45)
[2016-08-21] MEDS ORDERED: ZOLPIDEM 5 MG TABLET. PO PRN
[2016-08-21 03:05] VITALS: BP 127/76
[2016-08-21 07:00] VITALS: BP 110/63
[2016-08-21] MEDS: BUDESONIDE 0.5 MG/2 ML NEBU. NEB SCH (07:48)
[2016-08-21] MEDS: ALBUTEROL SULFATE 2.5 MG/3 ML NEBU. NEB SCH ×2 (07:49→11:25)
[2016-08-21] MEDS: INSULIN ASPART 300 UNITS/3 ML INSULN.PEN SQ SCH ×2 (07:58→12:24)
[2016-08-21] MEDS: PANTOPRAZOLE 40 MG TABLET.DR. PO SCH (07:59)
[2016-08-21] MEDS: LEVOTHYROXINE 125 MCG TABLET PO SCH (08:00)
[2016-08-21 08:50] LABS: CALCIUM 7.6 mg/dL (8.5-10.1); CREATININE 0.6 mg/dL (0.6-1.0); GFR 121.8; MAGNESIUM 2.4 mg/dL (1.8-2.4)
[2016-08-21 08:52] LABS: POTASSIUM 2.9 mmol/L (3.5-5.1)
[2016-08-21] MEDS ORDERED: POTASSIUM CHLORIDE 20 MEQ TABLET.ER. PO SCH (09:00)
[2016-08-21 12:00] VITALS: BP 127/92
[2016-08-21] MEDS ORDERED: INSU100V10 IJ (13:56)
[2016-08-21] MEDS ORDERED: INSU100V13 SQ (13:56)
[2016-08-21] MEDS: IV NORMAL SALINE 1000ML BAG 1,000 ML IV SCH (14:30)
[2016-08-21 15:00] VITALS: BP 132/78
--- NOTE | 2016-08-21 15:09 | PDOC3 ---
Discharge Summary [facility] Date of Admission: Aug 19, 2016 Discharge Date: Aug 21, 2016 Admitting Diagnosis 1. DKA, resolved 2. Pseudohyponatremia, resolved 3. Gap metabolic acidosis, closed 4. DM uncontrolled 5. Hypothyroidism on synthroid 6. Asthma vs COPD on inhalers 7. SIRS, no sepsis 8. MEtabolc encephalopathy sec to # 1 Problems: Final Diagnosis Brief Hospital Course Ms. Chua is a 25 old F, dm2 on insulin, just moved here no PCP, saying compliant with meds at home, comes for nausea, was found DKA. improved with insulin drip. require to go home today. levemir and aspart renewed for 1 month. dc time 35min General: No acute distress, Other (lethargic) Abdomen: Normal bowel sounds, Soft, No tenderness, No hepatosplenomegaly, No masses Extremities: No clubbing, No cyanosis, No edema, Normal pulses, No tenderness/ swelling Skin: No rashes, No breakdown, No significant lesion Problems: Disposition home CONDITION AT DISCHARGE: Improved Diet ada Scheduled Fluticasone/Salmeterol (Advair 250-50 Diskus) 1 PUFF IH BID (Reported) Insulin Detemir (Levemir) 32 UNIT SQ QHS Insulin Regular, Human (Novolin R) 10 UNIT IJ TID Levothyroxine Sodium (Synthroid) 1 TAB PO DAILY (Reported) Pantoprazole Sodium (Protonix) 1 TAB PO DAILY (Reported) Scheduled PRN Albuterol Sulfate (Proair Hfa Inhaler) 1 PUFF INH PRN Q6HRS PRN PRN SHORTNESS OF BREATH (Reported) Follow Up pcp in 2 weeks ERENDIRA CALDERON MD Aug 21, 2016 15:09
[2016-08-21] MEDS ORDERED: INSULIN DETEMIR 300 UNITS/3 ML INSULN.PEN. SQ SCH (21:00)
== END 2016-08-21 16:14 | disposition home or self-care (01) | DRG 637 ==
LOC: 1 WEST ICU 00:53 → 2 NORTH 08-20 07:32 → 6 SOUTH 08-20 20:09
PROVIDERS: ADMIT Internal Medicine; ATTEND Internal Medicine
DX: E13.10 Other specified diabetes mellitus with ketoacidosis without coma (principal); G93.41 Metabolic encephalopathy; R65.10 Systemic inflammatory response syndrome (SIRS) of non-infectious origin without acute organ dysfunction; E03.9 Hypothyroidism, unspecified; J45.909 Unspecified asthma, uncomplicated; Z79.4 Long term (current) use of insulin; Z88.1 Allergy status to other antibiotic agents; Z88.0 Allergy status to penicillin; Z88.8 Allergy status to other drugs, medicaments and biological substances
CPT/HCPCS: 36415; 36600; 80048; 81001; 82805; 82947; 83036; 83605; 83735; 84100; 85027; 87641; 94640; J1815; J2270; J2405; J3475; J3480; J7030; J7042